=== PATIENT | female | born 1990 | race Two or more races ===

== ENCOUNTER 2016-08-25 07:58 | Inpatient (IN) | payer OTHER ==
[~2016-08-25 07:58] MED LIST: Lactated Ringer's 1,000 ML IV SCH
[2016-08-25 08:15] VITALS: BMI 28.4
[2016-08-25] MEDS ORDERED: Bicitra 30 ML UD PO ONE (08:15)
[2016-08-25] MEDS: Lactated Ringer's 1,000 ML IV SCH ×2 (08:20→09:00)
[2016-08-25 08:43] LABS: BASO # 0.1 K/uL (0.0-0.2); BASO % 0.4 % (0.0-2.0); EOS # 0.3 K/uL (0.0-0.7); EOS % 1.8 % (0.0-4.0); HEMATOCRIT 41.1 % (34.0-47.0); LYMPH # 2.2 K/uL (1.0-4.3); LYMPH % 14.3 % (20.0-40.0); MEAN CELL VOLUME 84.6 fl (81.0-99.0); MEAN CORPUSCULAR HEMOGLOBIN 28.4 pg (27.0-31.0); MEAN CORPUSCULAR HGB CONC 33.6 g/dL (33.0-37.0); MEAN PLATELET VOLUME 8.7 fl (7.2-11.7); MONO % 6.9 % (0.0-10.0); NEUT # 11.6 K/uL (1.8-7.0); NEUT % 76.6 % (50.0-75.0); RED CELL DISTRIBUTION WIDTH 19.3 % (11.5-14.5); WHITE BLOOD COUNT 15.1 K/uL (4.8-10.8)
[2016-08-25 08:46] LABS: BLOOD UREA NITROGEN 4 mg/dl (7-17); CALCIUM 9.9 mg/dL (8.4-10.2); CARBON DIOXIDE 20 mmol/L (22-30); CHLORIDE 107 mmol/L (98-107); GFR AFRICAN-AMERICAN > 60; GLUCOSE,RANDOM 83 mg/dL (65-105); POTASSIUM 4.1 MMOL/L (3.6-5.0); SODIUM 136 mmol/l (132-148)
--- NOTE | 2016-08-25 08:54 | OBHP ---
Datetime: 08/25/2016 08:39 IP Adm Impression: , intrauterine IP Admit Plan: Admit to unit; Initiate Section protocol Admit Comment, IP Provider: 25 y/o @ _ 37 wks GA reporting decreased movements over pa st 1-2 weeks. Pt also states she was diagnosed with cholestasis of and has been on Actigal for weeks with no improvements in symptoms. Pt states she is terriefied with anxieity due to recent s ymtpom and what she has read online and with her previus hx of a miscarriage. Pt denies any rash. Pt reports contractions every 5 minutes, increasing in frequency. t denies any LOF, VB. Pt denies any he adaches, blurry vision, RUQ/epigastric pain. VS (see above) PE see above EMF: Cat I TOCO: q 3-5 min Ante: Rubuella: non immune, Intrahepatic cholestasisi of A/P 25 y/o @ _ 37 wks GA with intrahepatic choleastasis of pt counseled on IOL vs PLTCS extensively for delivery and understands all R/B/A/I. Pt has chosen n ot to undergone trial for IOL, cesearen section consent signed and witnessed. 1. admit to L+D 2. NPO, IVF 3. Pre OP Labs 4. Anesthesia Consult 5. Pre OP antibitiocs 6. scds 7. rock to gravity Pelvic Type - PN: Adequate Extremities - PN: Normal Abdomen - PN: Normal Back - PN: Normal Breast - PN: Normal Lungs - PN: Normal Heart - PN: Normal Thyroid - PN: Normal Neurologic - PN: Normal HEENT - PN: Normal General - PN: Normal Presentation-Admit: Vertex FHR - Baseline A Provider: 150 Membranes, Provider: Intact Contraction Comments Provider: q 3-5 min Gestation - Est Wks by US: 36.5 EGA AdmitDate IP: 36.5 Vital Signs Provider: Reviewed IP Chief Complaint: Decreased movement; Other NICHD Variability Prov Fetus A: Moderate 6-25bpm NICHD Decel Fetus A IP Provider: None Dilatation, Provider: 0 Effacement, Provider: 0 Station, Provider: -3 Genitourinary Exam: Normal DTRs - PN: Normal
[2016-08-25] MEDS ORDERED: Oxytocin 30 units/LR 500ML 30 U/500 ML BAG IV ONE (08:59)
--- NOTE | 2016-08-25 09:03 | OBADHP ---
Datetime: 08/25/2016 08:39 IP Chief Complaint Other: Intrahepatic cholestasis of Admit Comment, IP Provider: 25 y/o @ _ 37 wks GA reporting decreased movements over pa st 1-2 weeks. Pt also states she was diagnosed with cholestasis of and has been on Actigal for weeks with no improvements in symptoms. Pt states she is terriefied with anxieity due to recent s ymtpom and what she has read online and with her previus hx of a miscarriage. Pt denies any rash. Pt reports contractions every 5 minutes, increasing in frequency. t denies any LOF, VB. Pt denies any he adaches, blurry vision, RUQ/epigastric pain. VS (see above) PE see above EMF: Cat I TOCO: q 3-5 min Ante: Rubuella: non immune, Intrahepatic cholestasisi of A/P 25 y/o @ _ 37 wks GA with intrahepatic choleastasis of pt counseled on IOL vs PLTCS extensively for delivery and understands all R/B/A/I. Pt has chosen n ot to undergone trial for IOL, cesearen section consent signed and witnessed. 1. admit to L+D 2. NPO, IVF 3. Pre OP Labs 4. Anesthesia Consult 5. Pre OP antibitiocs 6. scds 7. rock to gravity Pelvic Type - PN: Adequate Extremities - PN: Normal Abdomen - PN: Normal Back - PN: Normal Breast - PN: Not Done Lungs - PN: Normal Heart - PN: Normal Thyroid - PN: Normal Neurologic - PN: Normal HEENT - PN: Normal General - PN: Normal Presentation-Admit: Vertex FHR - Baseline A Provider: 150 Membranes, Provider: Intact Contraction Comments Provider: q 3-5 min Gestation - Est Wks by US: 36.5 Vital Signs Provider: Reviewed IP Chief Complaint: Decreased movement; Other NICHD Variability Prov Fetus A: Moderate 6-25bpm NICHD Decel Fetus A IP Provider: None Dilatation, Provider: 0 Effacement, Provider: 0 Station, Provider: -3 Genitourinary Exam: Normal DTRs - PN: Normal EGA AdmitDate IP: 36.5 IP Adm Impression: , intrauterine IP Admit Plan: Admit to unit; Initiate Section protocol
[2016-08-25] MEDS ORDERED: DiphenhydrAMINE 50 mg/ml Inj IVP PRN (09:23)
[2016-08-25] MEDS: ceFAZolin 2 GM in Sodium Chloride 0.9% 100 ML IVPB ONE (10:00)
--- NOTE | 2016-08-25 11:35 | OBDS ---
DELIVERY PERSONNEL Delivery Doctor: Mercy Villeda MD, Dr. Edwards Scrub Nurse: Laurita Arzate OBT Early Childhood Education Instructor: Ami Hart [email or web address] Anesthesiologist: Mercy Guerra MD MATERNAL INFORMATION Delivery Anesthesia: Spinal Medications in Delivery: Pitocin Maternal Complications: None Provider Comments: live female , compund presentation with left hand, no nuchal cord. normal a ppearing uteurs, tubes and ovaries bilaterally. apgsr 9,9 weight of 2930 grams, ebl 700ml urine outp ut 150cc, no complicatins meat counter worker present for deilvery LABOR SUMMARY EDC: 09/17/2016 00:00 No. Babies in Womb: 1 Attempted: No Labor Anesthesia: None LABOR INFORMATION Reason for Induction: Not Applicable Oxytocin: N/A Group B Beta Strep: Negative Antibiotics # of Doses: ancef 2gms Antibiotics Time of Last Dose: 1000 Steroids Given: None Reason Steroids Not Administered: Not Applicable STAGES OF LABOR Stage 3 hrs: 0 Stage 3 min: 0 CSECTION DELIVERY Other Primary Indication: sympoamtic Severe Intrahepatic Cholestasis of CSection Urgency: N/A CSection Incidence: Primary Labor: N/A Elective: Elective CSection Incision: Lower Uterine Transverse BABY A INFORMATION Delivery Date/Time: 08/25/2016 10:51 Method of Delivery: Born in Route : No : N/A Forceps: N/A Vacuum Extraction: N/A Shoulder Dystocia : No SHOULDER DYSTOCIA BABY A Infant Delivery Date/Time: 08/25/2016 10:51 PRESENTATION/POSITION BABY A Presentation: Cephalic Cephalic Presentation: Vertex Breech Presentation: N/A PLACENTA INFORMATION BABY A Placenta Delivery Time : 08/25/2016 10:51 Placenta Method of Delivery: Expressed Placenta Status: Delivered SCORES BABY A Heart Rate 1 min: >100 bpm Resp Effort 1 min: Good Cry Reflex Irritability 1 min: Cough or Sneeze or Pulls Away Muscle Tone 1 min: Active Motion Color 1 min: Body [place], Extremities Blue Resuscitation Effort 1 min: Tactile Stimulation SCORE 1 MIN: 9 Heart Rate 5 min: >100 bpm Resp Effort 5 min: Good Cry Reflex Irritability 5 min: Cough or Sneeze or Pulls Away Muscle Tone 5 min: Active Motion Color 5 min: Body [place], Extremities Blue Resuscitation Effort 5 min: N/A SCORE 5 MIN: 9 INFORMATION BABY A Gestational Age at Delivery: 36.5 Gestational Status: Outcome : Liveborn Condition : Stable Sex: Female WEIGHT/LENGTH BABY A Infant Birthweight (gms): 2930 Infant Weight (lb): 6 Weight (oz): 7 CORD INFORMATION BABY A No. Cord Vessels: 3 Nuchal Cord : N/A Nuchal Cord Other: na True Knot: na Cord pH Baby Venous: 7.36 Cord Blood Taken: Yes Banking/Donate Info: na Suction: Mouth ASSESSMENT BABY A Complications: None Complications Other: none, Physical Findings at Delivery: Within Normal Limits Infant Respirations: Appears Normal Coatings Inspector/ALS Called : No Care By: Dr. Monge, Guille, Hailey, mary Transferred To: [facility]
--- NOTE | 2016-08-25 11:44 | PCM.SURG1 ---
Surgeon's Initial Post Op Note - Surgeon's Notes Surgeon: Ana Villeda MD Teacher Of The Handicapped: Chico Edwards MD Type of Anesthesia: Spinal Anesthesia Administered By: Dr Guerra Pre-Operative Diagnosis: Sympomatic severe, Intrahepatic cholestasis of , intrauterine with decreased movements Operative Findings: Live female compound presentation with left hand, no nuchal cord, normal appearing uterus, tubes and ovaries bilaterally, weight of 6ls 7 unces, agpars 9,9 , pediatric physical therapy assistant present for delivery. ebl 700ml. Dr Chico Edwards was present for entire case and essential in gaining entry, retraction, exposure, holding bladder blade, helping to deliver the baby, closing all layers. No complications Post-Operative Diagnosis: same as above Operation Performed: Primary Low Transverse Cesearen section Specimen/Specimens Removed: placenta Estimated Blood Loss: EBL {In ML}: 700 Blood Products Given: N/A Drains Used: No Drains Date of Surgery/Procedure: 08/25/16 Time of Surgery/Procedure: 10:30
[2016-08-25] MEDS ORDERED: Oxycodone/Acetaminophen 5/325 mg Tab PO PRN (11:45)
[2016-08-25] MEDS ORDERED: Benzocaine/Menthol (Cepacol) Lozenge PO PRN (12:14)
[2016-08-25 13:00] VITALS: BP 136/85; PULSE 118; RESP 18; TEMP 98.8; O2SAT 100
[2016-08-25] MEDS ORDERED: ceFAZolin 1 GM in Sodium Chloride 0.9% 100 ML IVPB SCH (16:00)
[2016-08-25] MEDS ORDERED: Lactated Ringer's 1,000 ML IV SCH (17:15)
[2016-08-25 18:13] LABS: RBC URINE 62 /hpf (0-3); URINE BACTERIA RARE (<OCC); URINE BILIRUBIN NEGATIVE (NEGATIVE); URINE BLOOD LARGE (NEGATIVE); URINE COLOR YELLOW (YELLOW); URINE GLUCOSE (UA) NEG (Normal); URINE KETONE 20 mg/dL (NEGATIVE); URINE LEUKOCYTE ESTERASE TRACE Leu/uL (Negative); URINE PROTEIN 30 mg/dL (NEGATIVE); URINE UROBILINOGEN 0.2-1.0 mg/dL (0.2-1.0); WBC URINE 8 /hpf (0-5)
[2016-08-25 20:56] LABS: BASO # 0.1 K/uL (0.0-0.2); BASO % 0.8 % (0.0-2.0); BLOOD UREA NITROGEN 5 mg/dl (7-17); CALCIUM 9.2 mg/dL (8.4-10.2); CARBON DIOXIDE 24 mmol/L (22-30); CHLORIDE 104 mmol/L (98-107); EOS # 0.2 K/uL (0.0-0.7); EOS % 1.1 % (0.0-4.0); GFR AFRICAN-AMERICAN > 60; GLUCOSE,RANDOM 82 mg/dL (65-105); HEMATOCRIT 37.5 % (34.0-47.0); LYMPH # 1.5 K/uL (1.0-4.3); MEAN CELL VOLUME 86.7 fl (81.0-99.0); MEAN CORPUSCULAR HEMOGLOBIN 28.4 pg (27.0-31.0); MEAN CORPUSCULAR HGB CONC 32.8 g/dL (33.0-37.0); MEAN PLATELET VOLUME 8.6 fl (7.2-11.7); MONO # 1.2 K/uL (0.0-0.8); MONO % 7.3 % (0.0-10.0); NEUT # 13.8 K/uL (1.8-7.0); NEUT % 81.8 % (50.0-75.0); NRBC % 0.1 % (0.0-0.0); PLATELET COUNT 150 K/uL (130-400); POTASSIUM 3.7 MMOL/L (3.6-5.0); RED CELL DISTRIBUTION WIDTH 18.6 % (11.5-14.5); SODIUM 135 mmol/l (132-148); WHITE BLOOD COUNT 16.9 K/uL (4.8-10.8)
[2016-08-25] MEDS: Simethicone 80 mg Chewtab PO SCH (21:07)
[2016-08-25 21:19] LABS: EOSINOPHIL 1 % (0-7); NEUTROPHIL 75 % (42-75); TOTAL CELLS COUNTED 100
[2016-08-25 21:20] LABS: GIANT PLATELETS PRESENT; LARGE PLATELETS PRESENT
[2016-08-26] MEDS: Oxycodone/Acetaminophen 5/325 mg Tab PO PRN ×3 (00:18→22:32)
[2016-08-26] MEDS: Simethicone 80 mg Chewtab PO SCH ×4 (04:35→21:05)
[2016-08-26] MEDS: ceFAZolin 1 GM in Sodium Chloride 0.9% 100 ML IVPB SCH ×2 (04:35→16:38)
--- NOTE | 2016-08-26 07:44 | OBPPN ---
Datetime: 08/26/2016 07:35 PP Pain Prov: Within normal limits PP Nausea Prov: Denies PP Flatus Prov: Yes PP BM Prov: No PP Breasts Prov: Normal PP Heart Prov: Abnormal PP Lungs Prov: Normal PP Abdomen/Uterus Prov: Normal PP Lochia Prov: Normal PP Vulva/Perineum Prov: Normal PP CVA Tenderness Prov: Normal PP Extremities Prov: Normal PP C/S Incision Prov: Normal PP Progress Prov: Not Applicable PP Comments Phys Exam Prov: GEN: NAD, AAOx 3 BREAST: NON TENDER non enroged b/l RESP CTAB/l CVS: Tachycardic, +S1/S2 ABD: soft, NT, ND, +BS, no guarding, no reboudn tenderness, no rigidity FUNDUS: FIrm, at level of umbiclius Incsion C/D/I steri strips in placed VE: moderate lochia, non foul smelling EXT: no calf tenderness, negative leo's sign PP Impression Prov: Normal progression PP Impression Other Prov: Asympomtic tachycardia PP Progress Note Prov: Pt seen and examined and has no complants. Pt denies any pain, not yet out of bed ambuating. Ventura removed this morning. Pt denies any ligtheadness, dizzyness, CP, SOB, cough. P t reports is exciated and nervous ot be a mother. Pt did not attempt to breast pump but will try toda y VS as above Urine Output >400cc/overnight PE: as above A/P s/p PLTCS POD #1 with acute asympoatic tachycardia -f/u am labs cbc, bmp -pain managmeent: precocet/motrin -activity: out of bed with assistance -abdominal binder, incentive spirometer -bowel regimen: simethicone, colace, milk of magnesia prn -IVH LR @ 125cc/hr, can d/c once toleratng regular diet -encourage breast feeding and ambuluation Vital Signs Provider PP: Reviewed Vital Signs Provider Details PP: HR: 109-120s
[2016-08-26 08:15] LABS: BASO # 0.1 K/uL (0.0-0.2); BASO % 0.6 % (0.0-2.0); EOS # 0.5 K/uL (0.0-0.7); EOS % 2.8 % (0.0-4.0); LYMPH % 12.5 % (20.0-40.0); MEAN CELL VOLUME 85.8 fl (81.0-99.0); MEAN CORPUSCULAR HEMOGLOBIN 28.3 pg (27.0-31.0); MEAN PLATELET VOLUME 8.4 fl (7.2-11.7); MONO # 1.2 K/uL (0.0-0.8); MONO % 7.6 % (0.0-10.0); NEUT # 12.5 K/uL (1.8-7.0); NEUT % 76.5 % (50.0-75.0); NRBC % 0.1 % (0.0-0.0); RED CELL DISTRIBUTION WIDTH 18.9 % (11.5-14.5); WHITE BLOOD COUNT 16.3 K/uL (4.8-10.8)
[2016-08-26 08:24] LABS: ALKALINE PHOSPHATASE 144 U/L (38-126); ALT/SGPT 52 U/L (9-52); AST/SGOT 45 U/L (14-36); BILIRUBIN,TOTAL 1.1 mg/dl (0.2-1.3); BLOOD UREA NITROGEN 5 mg/dl (7-17); CALCIUM 8.6 mg/dL (8.4-10.2); CARBON DIOXIDE 22 mmol/L (22-30); CHLORIDE 103 mmol/L (98-107); GFR AFRICAN-AMERICAN > 60; GLUCOSE,RANDOM 73 mg/dL (65-105); POTASSIUM 3.8 MMOL/L (3.6-5.0); SODIUM 131 mmol/l (132-148); TOTAL PROTEIN 5.1 G/DL (6.3-8.2)
[2016-08-26] MEDS: Prenatal Multivit/Folic Acid/Iron Tab PO SCH (09:17)
[2016-08-26] MEDS: Multivitamin With Minerals Tab PO SCH (09:17)
[2016-08-26] MEDS ORDERED: Bisacodyl 5mg EC Tab PO PRN (11:45)
[2016-08-27] MEDS: Simethicone 80 mg Chewtab PO SCH ×4 (04:47→21:24)
[2016-08-27] MEDS: Oxycodone/Acetaminophen 5/325 mg Tab PO PRN ×2 (07:44→10:55)
[2016-08-27 08:34] LABS: HEMATOCRIT 33.3 % (34.0-47.0); MEAN CELL VOLUME 87.4 fl (81.0-99.0); MEAN CORPUSCULAR HEMOGLOBIN 28.3 pg (27.0-31.0); MEAN CORPUSCULAR HGB CONC 32.3 g/dL (33.0-37.0); RED CELL DISTRIBUTION WIDTH 18.8 % (11.5-14.5); WHITE BLOOD COUNT 15.2 K/uL (4.8-10.8)
--- NOTE | 2016-08-27 08:35 | OP ---
PROCEDURE DATE: 08/25/2016 SURGEON: Dr. Ana Villeda. LOGISTICS SUPPLY OFFICER: Dr. Chico Edwards. TYPE OF ANESTHESIA: Spinal and administered by Dr. Guerra. PREOPERATIVE DIAGNOSES: Symptomatic intrahepatic cholestasis of , intrauterine preg matt with decreased movement. OPERATIVE FINDINGS: Live male with compound presentation ____ hand, no nuchal cord. Normal appearin g uterus, tubes, and ovaries bilaterally. Weight 6 pounds 7 ounces, Apgars 9 and 9. Custom Feed Corn Operator pr esent for delivery. ESTIMATED BLOOD LOSS: 700. Dr. Chico Edwards was present for the entire case and was essential in gaining entry, retraction, expos ure, holding the bladder blade, helping to deliver the baby, closing all layers. COMPLICATIONS: None. POSTOPERATIVE DIAGNOSES: Symptomatic intrahepatic cholestasis of , intrauterine pre gnancy with decreased movement. OPERATION PERFORMED: Primary low transverse section ____ . BLOOD PRODUCTS: None. DESCRIPTION OF PROCEDURE: The patient was brought to the operating where she was given spinal anesth esia. Once anesthesia was found adequate, she was ____ in the dorsal supine position ____ prepped an d draped in usual sterile fashion. A Ventura catheter was inserted in the urethra to drain the bladder . Preoperative prophylactic antibiotics were given prior to the procedure initiation. Pfannenstiel s kin incision was made with the scalpel and carried in line to the underlying fascia with the Bovie. Fascia was incised in midline and incision extended laterally with the Bovie. The inferior aspect of the fascial incision was grasped with Frank clamps ____ bluntly with use of the Bovie. Attention w as then turned to the superior aspect ____ similar fashion was grasped with Frank clamps and the rec tus muscles were dissected off bluntly with use of the Bovie. Rectus muscles were then bluntly separ ated in the midline. Peritoneum was identified ____ entered bilaterally and bluntly, extended latera lly and superiorly until good visualization ____ the Lenore was then inserted and the vesicouterine peritoneum was incised in transverse fashion with the Metzenbaum scissors. The incision was extended laterally. Bladder flap was created digitally. The lower end of the Jazmine was then reinserted. Lower uterine segment was incised in a transverse fashion. Lower uterine segment incision was extend ed laterally bluntly. There was clear amniotic fluid ____ the surgeon's hand entered the uterine cav ity and the 's head was delivered atraumatically with compound presentation of the left hand. No nuchal cord noted, followed by atraumatic delivery of the shoulders followed by delivery of the tye dy. Both oral and nasal passages were bulb suctioned, umbilical cord was clamped and cut, baby was h anded off to waiting microsoft bi developer. Cord blood and cord gases were ____. The placenta was then deliv ered manually. Uterus exteriorized and cleared of all clots and debris. The uterine incision with 0 Vicryl in a running locked fashion, second layer with same suture used to close the uterus in a runn ing imbricated manner. There was good hemostasis at the uterine incision site. There were normal tu bes ____ the abdomen and pericolic gutters were cleared of all clots and debris. There was good hemo stasis at the uterine incision site. The peritoneum was reapproximated and closed with 2-0 chromic i n a continuous fashion. The rectus was reapproximated and closed with 2-0 chromic in interrupted man ner. The subcutaneous space was closed with 2-0 plain in interrupted manner and the skin was reappro ximated and closed with 4-0 Monocryl in a running ____ fashion. The abdomen was then cleaned, incisi on was then ____ a clean abdominal dressing was ____ at the end of the procedure, all needle, sponge and instrument counts were noted to be correct x 2. The patient tolerated the procedure well and was transferred to recovery room in stable condition. Ana Villeda MD cc: [id number] TT: 08/25/2016 14:49:54 lovely
[2016-08-27] MEDS: Multivitamin With Minerals Tab PO SCH (10:39)
[2016-08-27] MEDS: Prenatal Multivit/Folic Acid/Iron Tab PO SCH (10:42)
--- NOTE | 2016-08-27 18:37 | CP.PCM.PN ---
Subjective - Date & Time of Evaluation Date of Evaluation: 08/27/16 Time of Evaluation: 06:00 - Subjective Subjective: pt seen with no complaint, dnies cp, sob, lighhteandd. Pt out of bed, voiding, passing flatus, liighter vaignal bleeding than yesterday Objective - Vital Signs/Intake and Output Vital Signs (last 24 hours): Temp Pulse Resp BP Pulse Ox 98.8 F 118 H 18 136/85 100 08/25/16 08:15 08/25/16 08:15 08/25/16 08:15 08/25/16 08:15 08/25/16 08:15 - Medications Medications: Current Medications Acetaminophen (Tylenol 325mg Tab) 650 mg PO Q4H PRN PRN Reason: Pain, Mild (1-3) Benzocaine/Menthol (Cepacol Sore Throat) 1 karolyn PO Q3 PRN PRN Reason: Sore Throat Last Admin: 08/26/16 00:46 Dose: 1 karolyn Bisacodyl (Dulcolax) 10 mg PO DAILY PRN PRN Reason: Constipation Diphenhydramine HCl (Benadryl) 50 mg IVP Q6 PRN PRN Reason: Itching / Pruritus Docusate Sodium (Colace) 100 mg PO BID [facility] Last Admin: 08/27/16 16:00 Dose: 100 mg Ibuprofen (Motrin Tab) 600 mg PO Q4H PRN PRN Reason: Pain, Mild (1-3) Last Admin: 08/27/16 00:56 Dose: 600 mg Ketorolac Tromethamine (Toradol) 30 mg IVP Q6 PRN PRN Reason: For PCEA Breakthrough Pain Last Admin: 08/25/16 14:41 Dose: 30 mg Metoclopramide HCl (Reglan) 10 mg IVP ONCE PRN PRN Reason: Nausea/Vomiting Multivitamins/Minerals (Therapeutic-M Tab) 1 tab PO DAILY [facility] Last Admin: 08/27/16 10:39 Dose: 1 tab Ondansetron HCl (Zofran Inj) 4 mg IVP Q6 PRN PRN Reason: Nausea/Vomiting Oxycodone/Acetaminophen (Percocet 5/325 Mg Tab) 1 tab PO Q4 PRN PRN Reason: Pain, moderate (4-7) Stop: 08/28/16 11:46 Last Admin: 08/27/16 10:55 Dose: 1 tab Oxycodone/Acetaminophen (Percocet 5/325 Mg Tab) 2 tab PO Q4 PRN PRN Reason: Pain, severe (8-10) Stop: 08/28/16 11:46 Last Admin: 08/26/16 17:04 Dose: 2 tab Multivit/Folic Acid/Iron () 1 tab PO DAILY [facility] Last Admin: 08/27/16 10:42 Dose: 1 tab Sennosides (Senokot Tab) 17.2 mg PO HS [facility] Last Admin: 08/26/16 21:04 Dose: 17.2 mg Simethicone (Mylicon Chew Tab) 80 mg PO Q6 [facility] Last Admin: 08/27/16 16:00 Dose: 80 mg Zolpidem Tartrate (Ambien) 5 mg PO HS PRN PRN Reason: Insomnia - Labs Labs: 08/27/16 07:30 08/26/16 06:00 - Head Exam Head Exam: ATRAUMATIC, NORMAL INSPECTION - Eye Exam Eye Exam: EOMI Pupil Exam: NORMAL ACCOMODATION - ENT Exam ENT Exam: Mucous Membranes Moist - Neck Exam Neck Exam: Normal Inspection - Respiratory Exam Respiratory Exam: Clear to Ausculation Bilateral, NORMAL BREATHING PATTERN - Cardiovascular Exam Cardiovascular Exam: +S1, +S2 - GI/Abdominal Exam GI & Abdominal Exam: Soft, Normal Bowel Sounds Additional comments: non distend, no guaridn,no reboud tendenres,s no rigitdy\ fundus; firm, blewo level of imbilvcs incsion c/d/i minial lochla non ful smeling - Extremities Exam Extremities Exam: Full ROM, Normal Inspection Additional comments: negativ ehoman's sign b/l Assessment and Plan (1) delivery delivered Assessment & Plan: 1. pain manamgnet 2. diet; advance to regluar as tolerated 3. f/u am labs 4. encouarge ambautin/ 5. incentive psiromer/abomeinal binder Status: Acute
[2016-08-28 06:49] LABS: BASO % 0.2 % (0.0-2.0); EOS # 0.3 K/uL (0.0-0.7); EOS % 2.1 % (0.0-4.0); HEMATOCRIT 33.4 % (34.0-47.0); LYMPH % 22.7 % (20.0-40.0); MEAN CELL VOLUME 86.7 fl (81.0-99.0); MEAN CORPUSCULAR HEMOGLOBIN 28.3 pg (27.0-31.0); MEAN CORPUSCULAR HGB CONC 32.6 g/dL (33.0-37.0); MEAN PLATELET VOLUME 7.8 fl (7.2-11.7); MONO # 0.8 K/uL (0.0-0.8); NEUT # 9.1 K/uL (1.8-7.0); WHITE BLOOD COUNT 13.2 K/uL (4.8-10.8)
[2016-08-28 07:05] LABS: BLOOD UREA NITROGEN 7 mg/dl (7-17); CALCIUM 8.6 mg/dL (8.4-10.2); CARBON DIOXIDE 23 mmol/L (22-30); CHLORIDE 107 mmol/L (98-107); GFR AFRICAN-AMERICAN > 60; GLUCOSE,RANDOM 74 mg/dL (65-105); SODIUM 138 mmol/l (132-148)
[2016-08-28 07:07] LABS: POTASSIUM 3.7 MMOL/L (3.6-5.0)
[2016-08-28] MEDS: Simethicone 80 mg Chewtab PO SCH ×5 (07:31→23:08)
[2016-08-28] MEDS: Prenatal Multivit/Folic Acid/Iron Tab PO SCH (08:36)
[2016-08-28] MEDS: Multivitamin With Minerals Tab PO SCH (08:37)
[2016-08-29] MEDS: Prenatal Multivit/Folic Acid/Iron Tab PO SCH (08:04)
[2016-08-29] MEDS: Multivitamin With Minerals Tab PO SCH (08:05)
[2016-08-29] MEDS: Simethicone 80 mg Chewtab PO SCH (09:22)
[2016-08-29] MEDS ORDERED: TDAP Vaccine 0.5 mL Syr IM ONE (14:29)
[2016-08-29] MEDS ORDERED: Measles, Mumps, and Rubella 0.5 ML VIAL SC ONE (15:00)
--- NOTE | 2016-08-31 08:16 | OBPPN ---
Datetime: 08/28/2016 08:00 PP Pain Prov: Within normal limits PP Nausea Prov: Present PP Flatus Prov: Yes PP BM Prov: No PP Breasts Prov: Normal PP Heart Prov: Normal PP Lungs Prov: Normal PP Abdomen/Uterus Prov: Normal PP Lochia Prov: Normal PP Vulva/Perineum Prov: Normal PP CVA Tenderness Prov: Normal PP Extremities Prov: Normal PP C/S Incision Prov: Normal PP Progress Prov: Normal PP Comments Phys Exam Prov: ABD: soft, TTP over nicision and epigastri region, no ruq tenderness, no guaridng,no reboudn tendenres, no rigidty INCSION C?D?I FUndus; Firm, belwo level of umbilcius moderate lochia, non foul smeling PP Impression Prov: Normal progression PP Plan Prov: Continue present management PP Progress Note Prov: delayed entry pt seen and examined with pain over incsion on right side not alleivate with pain medication adn v omiting x 1 unable to keep po intake down. Pt denies any fevers, chlils, lighthteandss, dizzyness, CP , SOB VSS PE see above A/P s/p PLTCS POD #3 with pain adn vomiting -NPO, IVF -zofran -pain mangment -f/u AM labs -will reevlate in PM for possible discharge Addendum: Pt reevated with vomtiign imprved iwth pain coming and going, improivng but still severe . Pt advsied to contineu Motrin with Perocoet, will reebvlate in AM, if unimproved will order CT A/P IP PP Procedures: None Vital Signs Provider PP: Reviewed
--- NOTE | 2016-08-31 08:16 | OBDCSUM ---
Datetime: 08/29/2016 14:35 Discharge Instructions, Provider: Routine instructions given Discharge Diagnosis, Provider: Delivery Contraception discussed, Prov: Yes Disch Activity Restrictions: No exercising; No lifting; No sexual activity; Nothing in vagina - Inte rcourse, tampons, douche Discharge Comment, Provider: precautiosn given Discharge Diagnosis Prov Other: cholestasis of Contraception after Delivery: Not Planning to Use
--- NOTE | 2016-08-31 08:16 | OBPPN ---
Datetime: 08/29/2016 10:30 PP Pain Prov: Within normal limits PP Nausea Prov: Denies PP Flatus Prov: Yes PP BM Prov: Yes PP Breasts Prov: Normal PP Heart Prov: Normal PP Lungs Prov: Normal PP Abdomen/Uterus Prov: Normal PP Lochia Prov: Normal PP Vulva/Perineum Prov: Normal PP CVA Tenderness Prov: Normal PP Extremities Prov: Normal PP C/S Incision Prov: Normal PP Progress Prov: Normal PP Comments Phys Exam Prov: abd; soft, nt, nd, +BS no guarind, no reboudn tendnerews,s no rigidity incsion c/d/i fundus; firm, below level of umbiliucs minimla lochia, non ful smelling PP Impression Prov: Normal progression PP Plan Prov: Discharge PP Progress Note Prov: pt seen adn examiend denies any vomiting, pain. pt ambuating out of bed,voidi ng, toleratinte regular diet, +BM, is breast feeding VSS Pe see above a/p s/p RLTCS POD # 4 doing well, stable for dsicharge -d/c home -rto 1 week -precautions givne IP PP Procedures: Rubella Vital Signs Provider PP: Reviewed; Within Normal Limits
== END 2016-08-29 18:45 | disposition home or self-care (01) | DRG 765 ==
LOC: H.EROB2 07:58 → H.NURSERY 08:29 → H.L&D 09:47 → H.OB/GYN 16:21
PROVIDERS: ADMIT Obstetrics & Gynecology; ATTEND Obstetrics & Gynecology
PROC: 10D00Z1 Extraction of Products of Conception, Low, Open Approach (ICD-10-PCS; principal; 2016-08-25)
PROC: 4A1HXCZ Monitoring of Products of Conception, Cardiac Rate, External Approach (ICD-10-PCS; 2016-08-25)
DX: O60.14X0 Preterm labor third trimester with preterm delivery third trimester, not applicable or unspecified (principal); K83.1 Obstruction of bile duct; O26.62 Liver and biliary tract disorders in childbirth; Z37.0 Single live birth; Z3A.36 36 weeks gestation of pregnancy